=== PATIENT | female | born 2000 | race Caucasian/White ===

== ENCOUNTER 2018-12-16 19:01 | Emergency (ER) | payer SELFPAY ==
[~2018-12-16] VITALS: Ht 165.1 cm; Wt 76.2 kg
[2018-12-16 19:40] VITALS: BP 121/69
--- NOTE | 2018-12-16 19:43 | NUR ---
TO LOBBY A/W BED AMBULATORY
--- NOTE | 2018-12-16 20:39 | NUR ---
PT TO ER BED 10
--- NOTE | 2018-12-16 20:40 | NUR ---
18/F PRESENTED TO ED WITH C/O LOWER ABD PAIN X1 WEEK. STATES 7/10 PAIN "COMES AND GOES CRAMPING". ABD SOFT NON TENDER. BOWEL SOUNDS ACTIVE IN ALL 4 QUADRANTS. NO SIGNS OF DISTRESS. A/OX4 PERSON PLACE TIME AND EVENT. WILL CONTINUE TO MONITOR. STATES HAD ASTHMA A CHILD BUT NO LONGER HAS. DENIES RX. DENIES ALLERGIES.
--- NOTE | 2018-12-16 20:42 | NUR ---
LAB AT BEDSIDE
--- NOTE | 2018-12-16 20:56 | NUR ---
US AT BEDSIDE
[2018-12-16 21:00] LABS: BASOPHILS # (AUTO) 0.1 K/uL (0.00-0.22); BASOPHILS % (AUTO) 0.7 % (0.0-2.0); EOSINOPHILS # (AUTO) 0.1 K/uL (0-0.4); EOSINOPHILS % (AUTO) 1.1 % (0.0-4.0); HEMATOCRIT 35.5 % (36-48); HEMOGLOBIN 11.8 g/dL (12.0-16.0); LYMPHOCYTES # (AUTO) 2.5 K/uL (2.5-16.5); LYMPHOCYTES % (AUTO) 29.4 % (20.5-51.1); MEAN CORPUSCULAR HEMOGLOBIN 28 pg (27-31); MEAN CORPUSCULAR HGB CONC 33 g/dL (33-37); MEAN CORPUSCULAR VOLUME 83.9 fL (80-94); MONOCYTES # (AUTO) 0.6 K/uL (0.8-1.0); MONOCYTES % (AUTO) 7.2 % (1.7-9.3); NEUTROPHILS # (AUTO) 5.3 K/uL (1.8-7.7); NEUTROPHILS % (AUTO) 61.6 % (42.2-75.2); PLATELET COUNT (AUTO) 260 K/uL (140-450); RED BLOOD CELL COUNT(AUTO) 4.23 MIL/uL (4.20-5.40); RED CELL DISTRIBUTION WIDTH 13.5 % (11.6-13.7); WHITE BLOOD COUNT (AUTO) 8.6 K/uL (4.5-11.0)
[2018-12-16 21:02] LABS: APPEARANCE,URINE CLEAR (CLEAR); BILIRUBIN,URINE NEGATIVE (NEGATIVE); BLOOD, URINE NEGATIVE (NEGATIVE); COLOR,URINE YELLOW (YELLOW); LEUKOCYTE ESTERASE ,URINE TRACE (NEGATIVE); NITRITE, URINE NEGATIVE (NEGATIVE); PH,URINE 6.5 (5.0-9.0); UGLUCOSE NEGATIVE (NEGATIVE)
[2018-12-16 21:06] LABS: RBC,URINE 0-5 /HPF (0-5)
--- NOTE | 2018-12-16 21:59 | NUR ---
PT NO SIGNS OF DISTRESS. WAITING PATIENTLY TO BE SEEN BY WILL CONTINUE TO MONITOR.
--- NOTE | 2018-12-16 22:21 | NUR ---
Dr. Mon examining patient.
[2018-12-16 22:48] VITALS: BP 121/69
--- NOTE | 2018-12-16 22:48 | NUR ---
Patient discharged with v/s stable. Written and verbal after care instructions given and explained. Patient alert, oriented and verbalized understanding of instructions. Ambulatory with steady gait. All questions addressed prior to discharge. ID band removed. Patient advised to follow up with PMD. Rx of MACROBID given. Patient educated on indication of medication including possible reaction and side effects. Opportunity to ask questions provided and answered. ACCOMPANIED BY BOYFRIEND.
== END 2018-12-16 22:48 | disposition home or self-care (01) ==
LOC: MED 19:01
DX: O20.0 Threatened abortion (principal); O23.41 Unspecified infection of urinary tract in pregnancy, first trimester; O99.511 Diseases of the respiratory system complicating pregnancy, first trimester; J45.909 Unspecified asthma, uncomplicated; Z3A.01 Less than 8 weeks gestation of pregnancy
CPT/HCPCS: 36415; 76817; 81001; 81025; 84702; 85025; 86900; 86901; 87086; 99284; Q0092

== ENCOUNTER 2022-11-06 19:04 | Emergency (ER) | payer BC, MEDICAID ==
[~2022-11-06] VITALS: Ht 165.1 cm; Wt 77.1 kg
[2022-11-06 19:25] VITALS: BP 134/72; PULSE 76; RESP 20; TEMP 98; O2SAT 98
--- NOTE | 2022-11-06 19:31 | NUR ---
pt went to the rest room to provide some urine
--- NOTE | 2022-11-06 19:31 | NUR ---
pt went to the lobby
--- NOTE | 2022-11-06 19:40 | NUR ---
urine given to lab.
[2022-11-06 19:52] LABS: BASOPHILS % (AUTO) 0.4 % (0.0-2.0); EOSINOPHILS # (AUTO) 0.1 K/uL (0-0.4); EOSINOPHILS % (AUTO) 1.2 % (0.0-4.0); HEMATOCRIT 33.5 % (36-48); HEMOGLOBIN 10.5 g/dL (12.0-16.0); LYMPHOCYTES # (AUTO) 1.9 K/uL (2.5-16.5); LYMPHOCYTES % (AUTO) 21.4 % (20.5-51.1); MEAN CORPUSCULAR HEMOGLOBIN 24 pg (27-31); MEAN CORPUSCULAR HGB CONC 31 g/dL (33-37); MONOCYTES # (AUTO) 0.7 K/uL (0.8-1.0); MONOCYTES % (AUTO) 8.1 % (1.7-9.3); NEUTROPHILS # (AUTO) 6.2 K/uL (1.8-7.7); NEUTROPHILS % (AUTO) 68.9 % (42.2-75.2); PLATELET COUNT (AUTO) 278 K/uL (140-450); RED BLOOD CELL COUNT(AUTO) 4.35 MIL/uL (4.20-5.40); RED CELL DISTRIBUTION WIDTH 15.3 % (11.6-13.7)
[2022-11-06 20:08] LABS: ALBUMIN 4.1 g/dL (3.4-5.0); ANION GAP 12.1 (8-16); CARBON DIOXIDE 28.5 mmol/L (21-32); CREATININE 0.7 mg/dL (0.6-1.3); POTASSIUM 3.6 mmol/L (3.5-5.1); TOTAL BILIRUBIN 0.4 mg/dL (0.0-1.0)
[2022-11-06 21:03] LABS: APPEARANCE,URINE CLEAR (CLEAR); BILIRUBIN,URINE NEGATIVE (NEGATIVE); BLOOD, URINE 1+ (NEGATIVE); COLOR,URINE YELLOW (YELLOW); LEUKOCYTE ESTERASE ,URINE 1+ (NEGATIVE); NITRITE, URINE NEGATIVE (NEGATIVE); UGLUCOSE NEGATIVE (NEGATIVE)
[2022-11-06] MEDS ORDERED: IBUP-2213 PO (21:32)
[2022-11-06] MEDS ORDERED: CEPH-588 PO (21:32)
[2022-11-06 21:39] VITALS: BP 134/72; PULSE 76; RESP 20; TEMP 98; O2SAT 98
--- NOTE | 2022-11-06 21:39 | NUR ---
Patient discharged with v/s stable. Written and verbal after care instructions given and explained. Patient alert, oriented and verbalized understanding of instructions. Ambulatory with steady gait. All questions addressed prior to discharge. ID band removed. Patient advised to follow up with PMD. Rx of KEFLEX AND IBUPROFEN given. Patient educated on indication of medication including possible reaction and side effects. Opportunity to ask questions provided and answered.
== END 2022-11-06 21:39 | disposition home or self-care (01) ==
LOC: MED 19:04
DX: N30.00 Acute cystitis without hematuria (principal); Z79.899 Other long term (current) drug therapy
CPT/HCPCS: 36415; 80053; 81001; 81025; 83690; 85025; 87086; 87491; 99283